=== PATIENT | female | born 1985 | race Caucasian/White ===

== ENCOUNTER 2018-04-26 11:10 | Emergency (ER) | payer OTHER, SELFPAY ==
[2018-04-26 11:16] VITALS: BP 132/85; PULSE 100; RESP 18; TEMP 36.7
--- NOTE | 2018-04-26 11:20 | W.ED.GENAD ---
Discharge Plan Discharge Details Chief Complaint: DentalOral Primary Care Provider: Malik Almanza ED Provider: Brian Wong Home Meds and New Rx's Prescriptions: No Action ibuprofen 200 MG tablet 1 tab PO PRN PRNRF: 0 fluoxetine [Prozac] 10 MG capsule 10 mg PO DAILY AM RF: 0 Medical Decision Making 32-year-old female with right upper odontalgia. No significant buccal or lingual fluctuance and no evidence of abscess. She has dentistry. We will ask her to follow-up with them. I will place her on a course of penicillin. Discussed outpatient management as well as follow-up and return precautions with the patient. HPI General Mode of arrival: ambulatory. Date/Time Provider Initiated Documentation: 04/26/18 11:16. Limitations to Documentation: no limitations. Information obtained by: patient. History of Present Illness 32 year old F presents to the emergency department with the chief complaint of Right upper tooth, described as moderate, Quality is described as aching, and is localized to the mouth and right. Patient reports no radiation. Patient started experiencing this day(s) and it has been constant. No relieving factors improve symptom(s), No exacerbating factors reported . Patient notes no other symptoms.. HPI Narrative: Right upper dental pain over 3 days time. Associated with right facial swelling. No vomiting. No change to voice. No sore throat. No drug Related Data Home Medications Medication Instructions Recorded Confirmed ibuprofen 1 tab PO PRN PRN 07/01/13 02/13/16 fluoxetine [Prozac] 10 mg PO DAILY AM 08/08/13 02/13/16 Allergies Allergy/AdvReac Type Severity Reaction Status Date / Time No Known Allergies Allergy Unverified 03/20/16 14:25 General Stated Complaint: DentalOral ANT: 4 Review of Systems Review of Systems 6 systems reviewed and otherwise negative [facility] Social History Smoking/Tobacco Use Status: Current every day Exam Narrative Exam Narrative: GEN: awake, alert, oriented 3. Pleasant, well groomed, interactive. HEAD: Normocephalic, atraumatic ENT: Mucous membranes moist, oropharynx without asymmetry or swelling. No buccal or lingual swelling. There is dental caries overlying tooth #2. It is tender to percussion. EYES: PERRL, EOMI NECK: Full ROM, no SHANELLE, no menigismus CHEST/RESP: Nontender, clear to auscultation bilateral, no wheeze/rhonchi/rales CARDIOVASCULAR: RRR, no murmur, rub augusto. 2+ Rad pulse bilateral Neuro: Grossly normal neurologic exam, conversant, interactive. Psych: Speech fluent, thoughts congruent, affect normal Course Vital Signs Temperature 36.7 C 04/26/18 11:16 Pulse 100 H 04/26/18 11:16 Respiratory Rate 18 04/26/18 11:16 Blood Pressure 132/85 04/26/18 11:16 Temperature 36.7 C 04/26/18 11:16 Temperature Source Temporal Artery Scan 04/26/18 11:16 Pulse 100 H 04/26/18 11:16 Respiratory Rate 18 04/26/18 11:16 Blood Pressure 132/85 04/26/18 11:16 Blood Pressure Position Sitting 04/26/18 11:16 Oxygen Delivery Method Room Air 04/26/18 11:16 Oxygen Flow Rate 0 04/26/18 11:16 Pain Level 3 04/26/18 11:16
--- NOTE | 2018-04-26 11:26 | ED.GENADUL_ITS ---
Discharge Plan Discharge Details Chief Complaint: DentalOral Primary Care Provider: Malik Almanza ED Provider: Brian Wogn Home Meds and New Rx's Prescriptions: No Action ibuprofen 200 MG tablet 1 tab PO PRN PRNRF: 0 fluoxetine [Prozac] 10 MG capsule 10 mg PO DAILY AM RF: 0 Medical Decision Making 32-year-old female with right upper odontalgia. No significant buccal or lingual fluctuance and no evidence of abscess. She has dentistry. We will ask her to follow-up with them. I will place her on a course of penicillin. Discussed outpatient management as well as follow-up and return precautions with the patient. HPI General Mode of arrival: ambulatory . Date/Time Provider Initiated Documentation: 04/26/18 11:16 . Limitations to Documentation: no limitations . Information obtained by: patient . History of Present Illness 32 year old F presents to the emergency department with the chief complaint of Right upper tooth, described as moderate, Quality is described as aching, and is localized to the mouth and right. Patient reports no radiation. Patient started experiencing this day(s) and it has been constant. No relieving factors improve symptom(s), No exacerbating factors reported . Patient notes no other symptoms.. HPI Narrative: Right upper dental pain over 3 days time. Associated with right facial swelling. No vomiting. No change to voice. No sore throat. No drug Related Data Home Medications Medication Instructions Recorded Confirmed ibuprofen 1 tab PO PRN PRN 07/01/13 02/13/16 fluoxetine [Prozac] 10 mg PO DAILY AM 08/08/13 02/13/16 Allergies Allergy/AdvReac Type Severity Reaction Status Date / Time No Known Allergies Allergy Unverified 03/20/16 14:25 General Stated Complaint: DentalOral ANT: 4 Review of Systems Review of Systems 6 systems reviewed and otherwise negative [facility] Social History Smoking/Tobacco Use Status: Current every day Exam Narrative Exam Narrative: GEN: awake, alert, oriented 3. Pleasant, well groomed, interactive. HEAD: Normocephalic, atraumatic ENT: Mucous membranes moist, oropharynx without asymmetry or swelling. No buccal or lingual swelling. There is dental caries overlying tooth #2. It is tender to percussion. EYES: PERRL, EOMI NECK: Full ROM, no SHANELLE, no menigismus CHEST/RESP: Nontender, clear to auscultation bilateral, no wheeze/rhonchi/rales CARDIOVASCULAR: RRR, no murmur, rub augusto. 2+ Rad pulse bilateral Neuro: Grossly normal neurologic exam, conversant, interactive. Psych: Speech fluent, thoughts congruent, affect normal Course Vital Signs Temperature 36.7 C 04/26/18 11:16 Pulse 100 H 04/26/18 11:16 Respiratory Rate 18 04/26/18 11:16 Blood Pressure 132/85 04/26/18 11:16 Temperature 36.7 C 04/26/18 11:16 Temperature Source Temporal Artery Scan 04/26/18 11:16 Pulse 100 H 04/26/18 11:16 Respiratory Rate 18 04/26/18 11:16 Blood Pressure 132/85 04/26/18 11:16 Blood Pressure Position Sitting 04/26/18 11:16 Oxygen Delivery Method Room Air 04/26/18 11:16 Oxygen Flow Rate 0 04/26/18 11:16 Pain Level 3 04/26/18 11:16
[2018-04-26 17:52] VITALS: BP 112/80; PULSE 88; RESP 18; TEMP 36.8; O2SAT 98
== END 2018-04-26 11:44 | disposition home or self-care (01) ==
LOC: ER 11:44
PROVIDERS: Emergency Provider Emergency Medicine; PCP Internal Medicine
DX: R22.0 Localized swelling, mass and lump, head (principal); K08.89 Other specified disorders of teeth and supporting structures
CPT/HCPCS: 99283

== ENCOUNTER 2018-06-21 17:15 | Outpatient (REF) | payer OTHER, SELFPAY ==
--- NOTE | 2018-06-21 16:40 | PAPFT_PTH ---
PATIENT: Sandrita Mancini LOC: [facility]#:[id number] AGE/SX: 32/F ROOM: RE06/21/[address]: Rosemary Robison : 1985 BED: DIS: 06/21/2018 SPEC #: [id number] RECD: 06/22/18 12:54 STATUS: THOMAS REStephani #: [id number] JOSÉ LUIS: 06/21/18 16:[address]: Rosemary Robison [facility]PT[facility] Cytology RECD BY: Kim Tineo ENTERED: 06/22/18 12:54 SP TYPE: PAPFT OTHR DR: Malik Almanza Tissues: 1 - CX/ENDOCX FOR PAP SMEARS Procedures: PAP THIN PREP/[facility] Screening HPV DNA PROBE Comments: [id number]
== END 2018-06-21 17:35 ==
LOC: NCHCN 17:15
PROVIDERS: PCP Internal Medicine; Visit Provider Nurse Practitioner Family
DX: Z12.4 Encounter for screening for malignant neoplasm of cervix (principal); Z11.51 Encounter for screening for human papillomavirus (HPV)
CPT/HCPCS: 88142; 87624

== ENCOUNTER 2022-04-28 15:48 | Outpatient (REF) | payer OTHER, SELFPAY ==
[2022-04-30 12:37] LABS: Varicella IgG Antibody Positive (See Note)
== END 2022-04-28 15:49 | disposition home or self-care (01) ==
LOC: NCHCN 15:48
PROVIDERS: PCP Internal Medicine; Visit Provider Nurse Practitioner Family
DX: Z00.00 Encounter for general adult medical examination without abnormal findings (principal); Z11.59 Encounter for screening for other viral diseases
CPT/HCPCS: 86787

== ENCOUNTER 2023-06-05 13:40 | Outpatient (REF) | payer OTHER, SELFPAY ==
--- NOTE | 2023-06-05 08:30 | PAPFT_PTH ---
PATIENT: Sandrita Mancini LOC: [facility] U#:[id number] AGE/SX: 37/F ROOM: RE06/05/[address]: Janee Hurd : 1985 BED: DIS: 06/05/2023 SPEC #: [id number] RECD: 06/05/23 14:00 STATUS: THOMAS ARTHUR #: [id number] JOSÉ LUIS: 06/05/23 08:[address]: Janee Hurd DEPT: [facility] Cytology RECD BY: Kim Tineo ENTERED: 06/05/23 14:01 SP TYPE: PAPFT OTHR DR: Malik Almanza Tissues: 1 - CX/ENDOCX FOR PAP SMEARS Procedures: PAP THIN PREP/[facility] Screening HPV DNA PROBE Comments: [id number]
== END 2023-06-05 13:41 | disposition home or self-care (01) ==
LOC: LBN 13:40
PROVIDERS: PCP Internal Medicine; Visit Provider Family Medicine
DX: Z01.419 Encounter for gynecological examination (general) (routine) without abnormal findings (principal); Z00.00 Encounter for general adult medical examination without abnormal findings; Z12.4 Encounter for screening for malignant neoplasm of cervix
CPT/HCPCS: 88142; 87624